=== PATIENT | female | born 2000 | race Caucasian/White ===

== ENCOUNTER 2019-12-28 21:45 | Observation (INO) ==
[2019-12-28 22:33] LABS: Bilirubin,Urine Negative (Negative); Blood,Urine Negative (Negative); Clarity,Urine Clear (Clear); Color,Urine Colorless (Yellow); Glucose,Urine (UA) Normal (Normal); Ketones,Urine Negative (Negative); Leukocyte Esterase,Urine Negative (Negative); Nitrite,Urine Negative (Negative); PH,Urine 6.5 pH Units (5.0-8.0); Protein,Urine Negative (Neg-Trace); Specific Gravity,Urine 1.008 (1.010-1.025); Urobilinogen,Urine Normal (Normal)
== END 2019-12-29 | disposition home or self-care (01) ==
LOC: 1NENULAB
PROVIDERS: ADMIT Advanced Practice Midwife; ATTEND Advanced Practice Midwife

== ENCOUNTER → 2020-01-11 22:01 | Observation (INO) ==
[2020-01-11 21:48] LABS: Bilirubin,Urine Negative (Negative); Blood,Urine Negative (Negative); Clarity,Urine Clear (Clear); Color,Urine Light-Yellow (Yellow); Glucose,Urine (UA) Normal (Normal); Ketones,Urine Negative (Negative); Leukocyte Esterase,Urine Negative (Negative); Nitrite,Urine Negative (Negative); PH,Urine 6.5 pH Units (5.0-8.0); Protein,Urine Negative (Neg-Trace); Specific Gravity,Urine 1.018 (1.010-1.025); Urobilinogen,Urine Normal (Normal)
== END | disposition home or self-care (01) ==
LOC: 1NENULAB
PROVIDERS: ADMIT Obstetrics & Gynecology; ATTEND Obstetrics & Gynecology

== ENCOUNTER 2020-02-14 18:25 | Inpatient (IN) ==
[~2020-02-14 18:25] MED LIST: *HR* FentaNYL (PF) 100 MCG/2 ML VIAL IVP PRN; CeFAZolin 2,000 MG/50 ML BAG IVPB ONE; Famotidine 20 MG/2 ML VIAL IVP ONE; Metoclopramide 10 MG/2 ML VIAL IVP ONE; Ringers Solution, Lactated 1,000 ML ONE
[2020-02-14] MEDS ORDERED: Oxytocin 20 units/ LR 1000 mL 20 UNIT/1,000 ML BAG IVC SCH (18:30)
[2020-02-14] MEDS ORDERED: Ringers Solution, Lactated 1,000 ML IVC SCH (18:30)
[2020-02-14 18:59] LABS: Basophils # 0.1 K/mcL (0.0-0.2); Basophils % 0.5 %; Eosinophils # 0.3 K/mcL (0.0-0.6); Hematocrit 40.8 % (35.3-44.9); Hemoglobin 13.1 g/dL (11.5-15.4); Immature Granulocytes % 0.4 % (0-4); Lymphocytes # 1.8 K/mcL (0.6-4.6); Lymphocytes % 11.8 %; Mean Corpuscular HGB Conc 32.1 g/dL (31.6-35.5); Mean Corpuscular Hemoglobin 26.4 pg (28.0-33.3); Mean Corpuscular Volume 82.1 fL (83.0-100.0); Mean Platelet Volume 11.2 fL (9.4-12.4); Monocytes # 0.9 K/mcL (0.0-1.3); Monocytes % 5.9 %; Neutrophils # 11.7 K/mcL (1.6-8.9); Platelet Count 324 K/mcL (140-400); Red Blood Count 4.97 M/mcL (3.82-4.97); Red Cell Distribution Width 13.5 % (11.5-14.5); Segmented Neutrophils % 79.4 %; White Blood Count 14.8 K/mcL (4.3-11.1)
[2020-02-14] MEDS ORDERED: *HR* Morphine Sulfate/PF 10 MG/10 ML AMPUL ONE (19:40)
[2020-02-14] MEDS ORDERED: *HR* FentaNYL (PF) 100 MCG/2 ML VIAL ONE (19:40)
[2020-02-14] MEDS ORDERED: EPHEDrine 50 MG/ML VIAL ONE (19:40)
[2020-02-14] MEDS ORDERED: *HR* Oxytocin 10 UNIT/ML VIAL IM ONE ×2 (19:42→21:15)
[2020-02-14 20:01] LABS: Amphetamine Screen,Urine Negative ng/mL (Cutoff=1000); Barbiturate Screen,Urine Negative ng/mL (Cutoff=200); Benzodiazepines Screen,Urine Negative ng/mL (Cutoff=200); Cannabinoid Screen,Urine Negative ng/mL (Cutoff = 50); Cocaine Screen,Urine Negative ng/mL (Cutoff= 300); Opiate Screen,Urine Negative ng/mL (Cutoff=300); Phencyclidine Screen,Urine Negative ng/mL (Cutoff=25)
[2020-02-14] MEDS ORDERED: Acetaminophen IV 1,000 MG/100 ML INFUS..BTL ONE (20:41)
[2020-02-14] MEDS ORDERED: Ondansetron 4 MG/2 ML VIAL ONE (20:41)
[2020-02-14] MEDS ORDERED: Ringers Solution, Lactated 1,000 ML ONE (21:14)
[2020-02-14] MEDS ORDERED: *HR* Meperidine 25 MG/ML SYRINGE IVP PRN (21:18)
[2020-02-14] MEDS ORDERED: Ondansetron 4 MG/2 ML VIAL IVP ONE (21:18)
[2020-02-14] MEDS ORDERED: *HR* HYDROmorphone PF 0.5 MG/0.5 ML SYRINGE IVP PRN (21:18)
[2020-02-14] MEDS ORDERED: *HR* Promethazine 25 MG/ML VIAL IVP PRN (21:18)
[2020-02-14] MEDS ORDERED: *HR* OxyCODONE Immed Rel 5 MG TABLET PO PRN (21:18)
[2020-02-15] MEDS ORDERED: Oxytocin 20 units/ LR 1000 mL 20 UNIT/1,000 ML BAG IVC SCH (00:31)
[2020-02-15] MEDS ORDERED: Ondansetron 4 MG/2 ML VIAL IVP PRN (00:31)
[2020-02-15] MEDS ORDERED: Ringers Solution, Lactated 1,000 ML IVC SCH (00:31)
[2020-02-15] MEDS ORDERED: *HR* OxyCODONE/APAP 10/325 TABLET PO PRN (00:31)
[2020-02-15] MEDS ORDERED: Sennosides 8.6 MG TABLET PO PRN (00:31)
[2020-02-15] MEDS ORDERED: Simethicone 80 MG TAB.CHEW PO PRN (00:31)
[2020-02-15] MEDS ORDERED: Metoclopramide 10 MG/2 ML VIAL IVP PRN (00:31)
[2020-02-15 01:21] LABS: Basophils % 0.2 %; Eosinophils # 0.1 K/mcL (0.0-0.6); Eosinophils % 0.8 %; Hematocrit 34.8 % (35.3-44.9); Hemoglobin 10.9 g/dL (11.5-15.4); Immature Granulocytes % 0.5 % (0-4); Lymphocytes # 1.4 K/mcL (0.6-4.6); Mean Corpuscular HGB Conc 31.3 g/dL (31.6-35.5); Mean Corpuscular Hemoglobin 25.5 pg (28.0-33.3); Mean Corpuscular Volume 81.3 fL (83.0-100.0); Monocytes # 0.6 K/mcL (0.0-1.3); Monocytes % 3.9 %; Neutrophils # 13.3 K/mcL (1.6-8.9); Platelet Count 252 K/mcL (140-400); Red Blood Count 4.28 M/mcL (3.82-4.97); Red Cell Distribution Width 13.4 % (11.5-14.5); Segmented Neutrophils % 85.6 %; White Blood Count 15.5 K/mcL (4.3-11.1)
[2020-02-15] MEDS: Ibuprofen 600 MG TABLET PO PRN ×2 (03:34→20:05)
[2020-02-15] MEDS: *HR* OxyCODONE/APAP 5/325 TABLET PO PRN (06:58)
[2020-02-15] MEDS: Prenatal Vit/FA 1 EACH TABLET PO SCH (07:49)
[2020-02-15] MEDS: cephALEXin 500 MG CAPSULE PO SCH ×3 (08:13→20:05)
[2020-02-15] MEDS: metroNIDAZOLE 500 MG TABLET PO SCH ×3 (08:13→20:05)
[2020-02-15] MEDS: GuaiFENesin/Pseudophedrine TABLET PO PRN (23:01)
[2020-02-16] MEDS: Ibuprofen 600 MG TABLET PO PRN ×2 (01:59→09:11)
[2020-02-16] MEDS: *HR* OxyCODONE/APAP 5/325 TABLET PO PRN (06:54)
[2020-02-16 08:11] VITALS: BP 113/78
[2020-02-16] MEDS: metroNIDAZOLE 500 MG TABLET PO SCH (09:10)
[2020-02-16] MEDS: Prenatal Vit/FA 1 EACH TABLET PO SCH (09:11)
[2020-02-16] MEDS: cephALEXin 500 MG CAPSULE PO SCH (09:11)
[2020-02-16] MEDS ORDERED: Rho Immune Globulin 1,500 UNIT SYRINGE IM ONE (09:37)
[2020-02-16] MEDS: GuaiFENesin/Pseudophedrine TABLET PO PRN (09:56)
== END 2020-02-16 11:48 | disposition home or self-care (01) | DRG 788 ==
LOC: 1NENULAB → 1NENUOBS 02-15 00:25
PROVIDERS: ADMIT Obstetrics & Gynecology; ATTEND Obstetrics & Gynecology